=== PATIENT | female | born 2000 | race Caucasian/White ===

== ENCOUNTER 2024-12-05 11:55 | Emergency (ER) | payer OTHER, SELFPAY ==
[2024-12-05 11:58] VITALS: BP 120/80; PULSE 58; RESP 18; TEMP 36.6; O2SAT 98
[2024-12-05 12:03] VITALS: BP 120/80; PULSE 58; RESP 18; TEMP 36.6; O2SAT 98
--- NOTE | 2024-12-05 12:30 | ED.GENADUL_ITS ---
Discharge Plan Disposition Patient Disposition: Home Condition: Stable Discharge Details Clinical Impression: Acute eye pain, Vision changes Primary Care Provider: Viji Jenkins ED Provider: Finesse Hassan Home Meds and New Rx's Prescriptions: Continued hydroxyzine HCl 10 mg tablet 10 mg PO QID PRN sertraline 50 mg tablet 50 mg PO DAILY Control PO Discharge Instructions Additional Instructions: Your lab work is reassuring and your visual acuity did not show any concerning findings at this time. You have an appointment at 245pm at [facility]. If you develop severe worsening pain or new symptoms such as high fevers return to the emergency department for reevaluation. HPI General Mode of arrival: ambulatory . Date/Time Provider Initiated Documentation: 12/05/24 12:00 . Limitations to Documentation: no limitations . Information obtained by: patient . History of Present Illness 24 year old F presents to the emergency department with the chief complaint of left eye pain and blurred vision, described as moderate, Patient started experiencing this hour(s) (3) and it has been constant. No relieving factors improve symptom(s), No exacerbating factors reported . Patient notes no other symptoms.. Patient did receive the following treatments prior to arrival, none Related Data Home Medications ?Medication ?Instructions ?Recorded ?Confirmed Control PO 03/10/19 hydroxyzine HCl 10 mg tablet 10 mg PO QID PRN 03/10/19 12/05/24 sertraline 50 mg tablet 50 mg PO DAILY 03/10/19 12/05/24 Allergies Allergy/AdvReac Type Severity Reaction Status Date / Time No Known Allergies Allergy Verified 12/05/24 12:01 General Stated Complaint: EyeProblem RICK: 4 Review of Systems All systems reviewed & are unremarkable except as noted in HPI and below Constitutional Constitutional: Denies chills, Denies fever(s) and Denies weakness Eyes Eyes: Reports blurry vision and Reports eye pain Cardiovascular Cardiovascular: Denies chest pain and Denies dyspnea Respiratory Respiratory: Denies cough and Denies dyspnea Gastrointestinal Gastrointestinal: Denies abdominal pain, Denies nausea and Denies vomiting Musculoskeletal Musculoskeletal: Denies joint swelling Neurologic Neurologic: Denies weakness Exam Const General: no acute distress Orientation: alert HENMT Head: normal to inspection Ears: external ears normal General nose exam: external nose normal Mouth: moist mucous membranes Eyes Alignment and Position: alignment normal Periorbital: periorbital findings normal Eyelids: eyelids normal Conjunctivae: conjunctivae normal Pupils: dilated and not fixed EOM: EOM intact bilaterally Direct ophthalmoscopy: no papilledema Resp Effort & Inspection: normal respiratory effort and able to speak in complete sentences Cardio Rate: regular rate Skin General skin exam: no rashes or lesions noted Neuro General: patient alert and patient oriented x3 Psych Mental Status: mental status grossly normal Course Vital Signs Vital signs: Vital Signs Temperature 36.6 C 12/05/24 11:58 Pulse 58 L 12/05/24 11:58 Respiratory Rate 18 12/05/24 11:58 Blood Pressure 120/80 12/05/24 11:58 Pulse Oximetry 98 12/05/24 11:58 Temperature 36.6 C 12/05/24 12:03 Temperature Source Oral 12/05/24 12:03 Pulse 58 L 12/05/24 12:03 Respiratory Rate 18 12/05/24 12:03 Blood Pressure 120/80 12/05/24 12:03 Pulse Oximetry 98 12/05/24 12:03 Oxygen Delivery Method Room Air 12/05/24 12:03 Oxygen Flow Rate 0 12/05/24 12:03 Pain Level 7 12/05/24 12:03 Medical Decision Making 24-year-old female comes in with left eye feeling blurry having pain. She says that she went to her system support specialist and states they really do anything for her and did not really examine her thoroughly. She denies them putting any drops in her eyes. She denies any fevers or trauma to the eye. She does have a history of migraines but states this does not feel typical for her other migraines. She has 20/20 vision of the right eye and 20/30 in the left eye. She has no periorbital swelling. Both pupils are mildly dilated but do react to light. She has no fevers or chills. Intraocular eye pressures were 16 in the left. Suspect this could be green but will check CBC, CMP and inflammatory markers and see if there is any availability to do an MRI of the orbits to evaluate for possible optic neuritis. MRI would not be able to be obtained until later this afternoon, labs unremarkable, patient stable. Still has normal vision in the eye. Discussed results with her and she has numerous extensions in her hair that would need to be taken out for the MRI and she does not want to this or have them cut out. She would prefer discharge and understands the reasoning for the MRI, I am going to place her on a follow-up list to see [facility] for follow-up soon as possible. She will return if anything worsens or changes. Differential Diagnosis Differential Diagnosis: Optic neuritis, migraine Quality:SDOH Health Related Social Needs: No Data to Display PFSH All Active Problems (Updated 12/05/24 @ 13:53 by Finesse Hassan MD) Vision changes (Acute) Acute eye pain (Acute) Medical History (Updated 12/05/24 @ 13:53 by Finesse Hassan MD) Lumbar pain Surgical History (Updated 03/10/19 @ 09:55 by Mary Whitten RN) History of appendectomy Social History Smoking/Tobacco Use Status: Never Smoking risk assessment performed?: Yes Alcohol Intake: current Alcohol Intake frequency: holidays/special occasions on ly Substance use type: does not use
[2024-12-05 12:57] LABS: Abs Immature Grans 0.02 10^3/uL (0.0-0.06); Absolute Basophil Count 0.02 10^3/uL (0.0-0.2); Absolute Eosinophil Count 0.15 10^3/uL (0.0-0.7); Absolute Lymphocyte Count 2.57 10^3/uL (1.2-3.4); Absolute Monocyte Count 0.39 10^3/uL (0.1-0.8); Absolute Neutrophil Count 4.41 10^3/uL (1.2-6.7); Basophils % 0.3 %; HCT 42.8 % (36.0-46.0); HGB 14.6 g/dL (11.2-15.7); Immature Grans % 0.3 %; MCHC 34.1 % (32.0-36.0); MCV 91 fL (80-95); MPV 10.6 fL (8.0-11.0); Monocytes % 5.2 %; Neutrophils % 58.2 %; Platelet Count 260 10^3/uL (130-400); RBC 4.71 10^6/uL (3.93-5.22); RDW 11.8 % (11.7-14.6); RDW-SD 39.4 fL; WBC 7.56 10^3/uL (4.4-10.8)
[2024-12-05 13:02] LABS: ESR 4 mm/hr (0-20)
[2024-12-05 13:09] LABS: ALT 35 U/L (14-59); AST 23 U/L (15-37); Alkaline Phosphatase 74 U/L (46-116); Anion Gap 7.7 mmol/L (3-11); BUN 13 mg/dL (7-18); Bilirubin, Total 0.5 mg/dL (0.2-1.0); CO2 27.3 mmol/L (21.0-32.0); CREATININE 0.8 mg/dL (0.55-1.02); Calcium 8.9 mg/dL (8.5-10.1); Chloride 105 mmol/L (98-107); Estimated GFR 105.45 (mL/min/1.73m2); Glucose 94 mg/dL (74-106); Potassium 4.2 mmol/L (3.5-5.1); Sodium 140 mmol/L (136-145); Total Protein 7.5 g/dL (6.4-8.2)
[2024-12-05 13:11] LABS: C-Reactive Protein < 0.50 mg/dL (<or=0.5)
[2024-12-05] MEDS: Ketorolac 15 MG/ML VIAL IVP (13:44)
[2024-12-05] MEDS: Prochlorperazine 10 MG/2 ML VIAL IVP (13:44)
[2024-12-05 14:04] VITALS: BP 111/82; PULSE 63; RESP 16; O2SAT 63
--- NOTE | 2024-12-05 18:14 | NUR.NOTE ---
Nursing Note: Received call from Mother Reyna Noonan who was asking what medications patient received here today. HIPAA form not yet uploaded into chart- called access and verified the HIPAA form was completed here earlier today and Mother Reyna is on that form. All medications patient was given was verbally told to her mother.
--- NOTE | 2024-12-05 20:07 | NUR.NOTE ---
This acting HS in chart per ASHLEE from [facility] for medical records review and fax per formal request for continuation of care. This is a mutual patient rec'd care at both [facility]. Faxed per official request signed by patient. Damaris Jones RNinformation systems planner. This is for the only purpose of continuity and continuation of care as requested. Faxed to [facility] @ 2009 hrs on this day. End of note.
== END 2024-12-05 14:19 | disposition home or self-care (01) ==
PROVIDERS: Emergency Provider Emergency Medicine; PCP Nurse Practitioner Family
DX: H53.8 Other visual disturbances (principal); H57.13 Ocular pain, bilateral
CPT/HCPCS: 80053; 85652; 96374; 96375; 99284; 83735; 85025; 86140; J0780; J1885